=== PATIENT | female | born 1990 | race Caucasian/White ===

== ENCOUNTER 2018-03-15 05:44 | Inpatient (IN) | payer OTHER ==
[2018-03-15] MEDS ORDERED: OXYTOCIN 30 UNITS/LR 500 ML IV ×3 (06:30→13:00)
[2018-03-15] MEDS ORDERED: CARBOPROST 250 MCG INJ IM ×2 (06:30→13:00)
[2018-03-15] MEDS ORDERED: METHYLERGONOVINE 0.2 MG INJ IM ×2 (06:30→13:00)
[2018-03-15] MEDS ORDERED: MISOPROSTOL 200 MCG TAB PR ×2 (06:30→13:00)
[2018-03-15] MEDS: LACTATED RINGER'S 1,000 ML IV ×3 (07:36→23:52)
[2018-03-15 08:09] LABS: ADD MAN DIFF? NO
[2018-03-15 08:12] LABS: WHITE BLOOD COUNT 9.7 10^3/ul (4.8-10.8)
[2018-03-15 08:12] LABS: BASOPHILS % 0.2 % (0.0-2.0); EOSINOPHILS # 0.1 10^3/ul (0.0-0.5); EOSINOPHILS % 0.9 % (0.0-7.0); HEMATOCRIT 32.8 % (37.0-47.0); HEMOGLOBIN 10.8 g/dl (12.0-16.0); LYMPHOCYTES # 2.2 10^3/ul (0.8-2.9); LYMPHOCYTES % 22.9 % (15.0-51.0); MEAN CORPUSCULAR HEMOGLOBIN 28.6 pg (29.0-33.0); MEAN CORPUSCULAR HGB CONC 32.9 g/dl (32.0-37.0); MEAN CORPUSCULAR VOLUME 86.8 fl (82.0-101.0); MEAN PLATELET VOLUME 10.4 fl (7.4-10.4); MONOCYTE # 0.8 10^3/ul (0.3-0.9); MONOCYTES % 8.3 % (0.0-11.0); NEUTROPHIL # 6.5 10^3/ul (1.6-7.5); NEUTROPHILS % 67.2 % (39.0-77.0); PLATELET COUNT 259 10^3/UL (140-415); RED BLOOD COUNT 3.78 10^6/ul (4.20-5.40); RED CELL DISTRIBUTION WIDTH 14.3 % (11.5-14.5)
[2018-03-15 08:30] LABS: INR 0.89; PARTIAL THROMBOPLASTIN TIME 28.6 Sec (25.0-35.0); PROTIME 12.1 Sec (11.9-14.9); PT RATIO 0.9
[2018-03-15] MEDS ORDERED: ONDANSETRON 4 MG INJ ×2 (08:56→09:30)
[2018-03-15] MEDS: CITRIC ACID/SODIUM CITRATE 15 ML CUP PO (09:00)
[2018-03-15] MEDS: METOCLOPRAMIDE 10 MG INJ IV (09:00)
[2018-03-15] MEDS ORDERED: morphine SULFATE/PF (10 MG/10 ML) INJ (09:05)
[2018-03-15] MEDS ORDERED: BUPIVACAINE 0.75%/DEXT (SPINAL) 2 ML INJ (09:05)
[2018-03-15] MEDS: FAMOTIDINE 20 MG INJ IV (09:06)
[2018-03-15] MEDS ORDERED: PHENYLephrine (100 MCG/ML) 10ML SYG (09:21)
[2018-03-15 09:27] LABS: HEPATITIS B SURFACE ANTIGEN NEGATIVE (NEGATIVE)
[2018-03-15] MEDS ORDERED: EPHEDrine SULFATE 50 MG/5 ML SYG (09:31)
[2018-03-15] MEDS ORDERED: FENTAnyl 50 MCG/ML VIAL IV ×3 (10:30)
[2018-03-15] MEDS ORDERED: MEPERIDINE 25 MG INJ IV (10:30)
[2018-03-15] MEDS ORDERED: HYDROmorphONE 1 MG/5 ML IV SYRINGE IV ×3 (10:30)
[2018-03-15] MEDS ORDERED: DIPHENHYDRAMINE 50 MG INJ IV ×2 (10:30→13:00)
[2018-03-15] MEDS ORDERED: PROCHLORPERAZINE 10 MG INJ IV (10:30)
[2018-03-15] MEDS: OXYTOCIN 30 UNITS/LR 500 ML IV ×2 (10:49→13:38)
[2018-03-15] MEDS: CEFAZOLIN 3 GM in DEXTROSE 5% 100 ML IV (10:57)
[2018-03-15] MEDS: ONDANSETRON 4 MG INJ IV (11:11)
[2018-03-15] MEDS ORDERED: DEXTROSE 5%-LR 1,000 ML IV (12:38)
[2018-03-15] MEDS ORDERED: NALOXONE (0.4 MG/ML) INJ IV (13:00)
[2018-03-15] MEDS ORDERED: ZOLPIDEM 5 MG TAB PO (13:00)
[2018-03-15] MEDS ORDERED: HYDROmorphONE 0.5 MG/0.5 ML SYG IV ×2 (13:00)
[2018-03-15] MEDS ORDERED: METHYLERGONOVINE 0.2 MG TAB PO (13:00)
[2018-03-15] MEDS ORDERED: ONDANSETRON 4 MG INJ IV (13:00)
[2018-03-15] MEDS: OXYCODONE/ACETAMINOPHEN (5/325) TAB PO ×2 (13:30→21:03)
[2018-03-15] MEDS: SENNA/DOCUSATE NA (8.6MG/50MG) TAB PO (21:03)
[2018-03-15 21:59] LABS: RAPID PLASMA REAGIN NONREACTIVE (NR)
[2018-03-16] MEDS: OXYCODONE/ACETAMINOPHEN (5/325) TAB PO ×6 (05:10→23:18)
[2018-03-16] MEDS: LACTATED RINGER'S 1,000 ML IV ×2 (08:38→16:49)
[2018-03-16 09:01] LABS: ADD MAN DIFF? NO
[2018-03-16 09:05] LABS: BASOPHILS % 0.2 % (0.0-2.0); EOSINOPHILS # 0.1 10^3/ul (0.0-0.5); EOSINOPHILS % 0.4 % (0.0-7.0); HEMATOCRIT 25.3 % (37.0-47.0); HEMOGLOBIN 8.4 g/dl (12.0-16.0); LYMPHOCYTES # 2.3 10^3/ul (0.8-2.9); LYMPHOCYTES % 19.4 % (15.0-51.0); MEAN CORPUSCULAR HEMOGLOBIN 28.7 pg (29.0-33.0); MEAN CORPUSCULAR HGB CONC 33.2 g/dl (32.0-37.0); MEAN CORPUSCULAR VOLUME 86.3 fl (82.0-101.0); MEAN PLATELET VOLUME 10.5 fl (7.4-10.4); MONOCYTE # 0.9 10^3/ul (0.3-0.9); MONOCYTES % 7.7 % (0.0-11.0); NEUTROPHIL # 8.3 10^3/ul (1.6-7.5); NEUTROPHILS % 71.9 % (39.0-77.0); PLATELET COUNT 192 10^3/UL (140-415); RED BLOOD COUNT 2.93 10^6/ul (4.20-5.40); RED CELL DISTRIBUTION WIDTH 14.4 % (11.5-14.5)
[2018-03-16 09:05] LABS: WHITE BLOOD COUNT 11.6 10^3/ul (4.8-10.8)
[2018-03-16] MEDS: SENNA/DOCUSATE NA (8.6MG/50MG) TAB PO ×2 (10:42→21:18)
[2018-03-16] MEDS: LANOLIN 7 GM TUBE TOP (23:19)
[2018-03-17] MEDS: OXYCODONE/ACETAMINOPHEN (5/325) TAB PO ×6 (05:30→21:12)
[2018-03-17] MEDS: SENNA/DOCUSATE NA (8.6MG/50MG) TAB PO ×2 (08:21→20:55)
[2018-03-18] MEDS: OXYCODONE/ACETAMINOPHEN (5/325) TAB PO ×5 (01:12→18:46)
[2018-03-18] MEDS: SENNA/DOCUSATE NA (8.6MG/50MG) TAB PO (09:06)
[2018-03-18] MEDS: DIPHTH/TET/ACEL PERTUSS (ADULT) 0.5 ML VIAL IM* (09:07)
[2018-03-18] MEDS: MEASLES,MUMPS,RUBELLA VACCINE INJ SC* (09:31)
== END 2018-03-18 19:50 | disposition home or self-care (01) | DRG 765 ==
LOC: L-D 05:44 → PP1 13:18
PROVIDERS: Obstetrics & Gynecology
PROC: 10D00Z1 Extraction of Products of Conception, Low, Open Approach (ICD-10-PCS; principal; 2018-03-15 09:15)
DX: O34.211 Maternal care for low transverse scar from previous cesarean delivery (principal); O99.214 Obesity complicating childbirth; E66.01 Morbid (severe) obesity due to excess calories; Z68.42 Body mass index [BMI] 45.0-49.9, adult; Z3A.39 39 weeks gestation of pregnancy; Z37.0 Single live birth
CPT/HCPCS: 85025; 85610; 85730; 86592; 86850; 86900; 86901; 87340; 99464